=== PATIENT | male | born 1955 | race Caucasian/White ===

== ENCOUNTER 2022-11-01 03:50 | Day surgery (SDC) | payer MEDICARE, SELFPAY ==
[2022-10-28 14:00] VITALS: BMI 29.0
[2022-11-01 06:58] VITALS: BP 120/84; PULSE 74; RESP 18; TEMP 36.4; O2SAT 100; BMI 28.8
[2022-11-01] MEDS: LACTATED RINGERS 1,000 ML 150 ML IV CONT (07:15)
--- NOTE | 2022-11-01 07:47 | PM.HPGS ---
History of Present Illness History of Present Illness Consent: Risks, benefits, and alternatives have been discussed and questions answered. Patient agrees to proceed with procedure. Chief complaint: positive cologuard Narrative: Steve Fernandes is a 66 year old male here for first colonoscopy, had + cologuard Review of Systems Constitutional: Constitutional: Denies headache(s) and Denies weakness Eyes: Eyes: Denies blurry vision ENT: Reports Normal hearing present, Denies headache(s) and Denies neck pain Cardiovascular: Cardiovascular: Denies chest pain and Denies dyspnea Respiratory: Respiratory: Denies dyspnea Gastrointestinal: Gastrointestinal: Reports no additional gastrointestinal complaints Genitourinary: Genitourinary: Denies dysuria Musculoskeletal: Musculoskeletal: Denies neck pain Integumentary/Breasts: Skin/Breast: Denies dry skin Neurologic: Reports Normal hearing present, Denies headache(s) and Denies weakness Psychiatric: Psychiatric: Denies anxiety Endocrine: Endocrine: Denies change in body appearance Hematologic/Lymphatic: Hematologic/Lymphatic: Denies easy bleeding Allergic/Immunologic: Allergic/Immunologic: Denies urticaria PMFSH Past Medical History Medical History (Updated 11/01/22 @ 07:48 by Homer Cedeno MD) Positive colorectal cancer screening using Cologuard test Social History Social History Smoking status: Former smoker Tobacco type: cigarettes Alcohol intake: current Alcohol use details: wine occasionally Substance use type: does not use Living arrangements: with family Spiritual care concerns: Yes (No blood products) Meds Home Medications and Allergies Home Medications Medication Instructions Recorded Confirmed Type losartan 100 1 tablet PO DAILY 10/28/22 11/01/22 History mg-hydrochlorothiazide 12.5 mg tablet Allergies Allergy/AdvReac Type Severity Reaction Status Date / Time No Known Allergies Allergy Verified 11/01/22 06:57 Vital Signs Vital Signs - 24 hr 11/01/22 06:58 Temperature 97.5 F L Pulse Rate 74 Respiratory Rate 18 Blood Pressure 120/84 Pulse Oximetry 100 Oxygen Delivery Room Air Exam Const: General: comfortable and no acute distress HENMT: Face/Nose/Sinus: Normal nares present Eyes: General: appearance normal, both eyes and all related structures Neck: Neck: no JVD Resp: Auscultation: clear to auscultation bilaterally Cardio: Rate: regular rate Rhythm: regular rhythm GI: Inspection: non-distended GI Palp: Yes Soft to palpation Skin: General skin exam: normal color Neuro: General: gait normal Speech: normal speech Extrem: General: normal to inspection Psych: Mental Status: mental status grossly normal Assessment and Plan Assessment and plan (1) Positive colorectal cancer screening using Cologuard test: Code(s): R19.5 - Other fecal abnormalities Status: Acute Assessment and Plan: colonoscopy
--- NOTE | 2022-11-01 07:51 | WPDANESEPPF ---
Anes - Initial Pre Proc Eval Procedure: Operation Date: 11/01/22 08:00 Proposed Procedures p Colonoscopy - Homer Cedeno MD Date/Time: 11/01/22 07:51 Surgeon: Homer Cedeno MD Pre Op Diagnosis: positive cologuard Patient Data Age: 66 Gender: M Height: 1.73 m Weight: 85.9 kg Last Vital Signs Temp 97.5 F L 11/01/22 06:58 Pulse 74 11/01/22 06:58 Resp 18 11/01/22 06:58 BP 120/84 11/01/22 06:58 Pulse Ox 100 11/01/22 06:58 O2 Del Method Room Air 11/01/22 06:58 Allergies Allergy/AdvReac Type Severity Reaction Status Date / Time No Known Allergies Allergy Verified 11/01/22 06:57 Home Medications Medication Instructions Recorded Confirmed Type losartan 100 1 tablet PO DAILY 10/28/22 11/01/22 History mg-hydrochlorothiazide 12.5 mg tablet Patient hx anesthesia problems: none Family hx anesthesia problems: none Results Review: All pre-operative results and documents have been reviewed as part of the pre-operative evaluation. [facility] Past Medical History Medical History (Updated 11/01/22 @ 07:48 by Homer Cedeno MD) Positive colorectal cancer screening using Cologuard test Social History Social History Smoking status: Former smoker Tobacco type: cigarettes Alcohol intake: current Alcohol use details: wine occasionally Substance use type: does not use Living arrangements: with family Spiritual care concerns: Yes (No blood products) Anes - Eval Final PreProcedure Day of Procedure 11/01/22 07:51 Patient weight: overweight Heart: regular rate and rhythm Lungs: clear to auscultation Airway: Mallampati scale class II Neurological: alert and oriented Last oral intake: >/= 8 hours ASA classification: II Emergent: no Anesthetic plan: proceed Anesthesia type and monitoring: general GIVS and standard monitoring Results Review: All pre-operative results and documents have been reviewed as part of the pre-operative evaluation. Informed Consent: The patient's anesthetic plan and its attendant risks and benefits were discussed with the patient/family/POA. Questions were solicited and answers provided to the satisfaction of the patient/family/POA.
[2022-11-01 08:19] VITALS: BP 107/70; PULSE 74; RESP 20; O2SAT 99
[2022-11-01 08:29] VITALS: BP 113/63; PULSE 72; RESP 20; O2SAT 99
[2022-11-01 08:39] VITALS: BP 120/82; PULSE 74; RESP 20; O2SAT 98
== END 2022-11-01 08:43 | disposition home or self-care (01) ==
PROVIDERS: PCP Family Medicine; Visit Provider Internal Medicine Gastroenterology
PROC: 0DJD8ZZ Inspection of Lower Intestinal Tract, Via Natural or Artificial Opening Endoscopic (ICD-10-PCS; CPT 45378; principal; 2022-11-01 08:00)
DX: C18.7 Malignant neoplasm of sigmoid colon (principal); D12.3 Benign neoplasm of transverse colon; D12.4 Benign neoplasm of descending colon; K57.30 Diverticulosis of large intestine without perforation or abscess without bleeding; K64.8 Other hemorrhoids; Z87.891 Personal history of nicotine dependence
CPT/HCPCS: 45385; 88305; 88341; 88342; J2001; J2704; J7120

== ENCOUNTER 2022-11-19 09:44 | Outpatient (CLI) | payer MEDICARE, SELFPAY ==
--- NOTE | ~2022-11-19 | CT_ITS ---
EXAMINATION: CT chest abdomen pelvis w con DATE: 11/19/2022 10:15 INDICATION: Malignant neoplasm of the sigmoid colon TECHNIQUE: Transaxial computed tomographic images of the chest, abdomen, and pelvis were obtained aft er the administration of 100 cc of Omnipaque 350 intravenous contrast. The dose-length product (DLP) was 1141.78 mGy-cm. Automated exposure control and iterative reconstruction technique were employed. COMPARISON: None FINDINGS: CHEST CT: There is a 2 mm nodule of the right upper lobe. There is a 3 mm nodule of the left upper lobe. The saeed ngs are free of acute opacities. No pleural effusion or pneumothorax. No pathologically enlarged thor acic lymph nodes are identified. The heart size is normal. There is moderate thoracic spondylosis. ABDOMEN/PELVIS CT: The spleen is surgically absent. There are multiple small splenules of the left upper quadrant. The l iver, pancreas, gallbladder, and adrenal glands are normal. There is a 7.8 x 5.5 cm cyst with thin se ptation in the right kidney. There are multiple nonobstructing stones of the right kidney which measu re up to 4 mm. There is a 17 mm cyst of the left kidney. No pathologically enlarged abdominal or pelv ic lymph nodes are identified. No free intraperitoneal gas or evidence of bowel obstruction. There is moderate lumbar spondylosis. IMPRESSION: 1. Small nodules of the lungs which could reflect old granulomatous disease. 2. No evidence of metastatic disease in the abdomen or pelvis. 3. Nonobstructing right nephrolithiasis. Reviewed, dictated and finalized at location L.
[2022-11-19 09:59] LABS: Estimated Glomerular Filt Rate > 60
== END 2022-11-19 09:45 ==
LOC: GOSHIMG 09:45
PROVIDERS: PCP Family Medicine; Visit Provider Surgery
DX: C18.7 Malignant neoplasm of sigmoid colon (principal); N20.0 Calculus of kidney; R91.8 Other nonspecific abnormal finding of lung field
CPT/HCPCS: 71260; 74177; Q9967

== ENCOUNTER 2022-12-13 01:25 | Day surgery (SDC) | payer MEDICARE, SELFPAY ==
[2022-11-28 10:55] VITALS: BMI 28.5
[2022-12-13 09:04] VITALS: BP 130/100; PULSE 71; RESP 18; TEMP 36.4; O2SAT 100
[2022-12-13] MEDS: LACTATED RINGERS 1,000 ML 150 ML IV CONT (09:14)
--- NOTE | 2022-12-13 09:41 | WPDANESEPPF ---
Anes - Initial Pre Proc Eval Procedure: Operation Date: 12/13/22 10:00 Proposed Procedures p Flexible Sigmoidoscopy - Homer Cedeno MD Date/Time: 12/13/22 09:41 Surgeon: Homer Cedeno MD Pre Op Diagnosis: Malignant neoplasm of sigmoid colon Patient Data Age: 66 Gender: M Height: 1.73 m Weight: 85.8 kg Last Vital Signs Temp 97.6 F 12/13/22 09:04 Pulse 71 12/13/22 09:04 Resp 18 12/13/22 09:04 BP 130/100 H 12/13/22 09:04 Pulse Ox 100 12/13/22 09:04 O2 Del Method Room Air 12/13/22 09:04 Allergies Allergy/AdvReac Type Severity Reaction Status Date / Time No Known Allergies Allergy Verified 12/13/22 09:03 Home Medications Medication Instructions Recorded Confirmed Type losartan 100 1 tablet PO DAILY 10/28/22 12/13/22 History mg-hydrochlorothiazide 12.5 mg tablet Patient hx anesthesia problems: none Family hx anesthesia problems: none Results Review: All pre-operative results and documents have been reviewed as part of the pre-operative evaluation. [facility] Past Medical History Medical History Cancer of sigmoid colon Hypertension Kidney stones Positive colorectal cancer screening using Cologuard test Surgical History Surgical History History of appendectomy History of splenectomy Social History Social History Smoking status: Former smoker Tobacco type: cigarettes Alcohol intake: current Alcohol use details: occasional Substance use type: does not use Living arrangements: with family Occupation/Education: retired Spiritual care concerns: No Anes - Eval Final PreProcedure Day of Procedure 12/13/22 09:41 Patient weight: normal Heart: regular rate and rhythm Lungs: clear to auscultation Airway: Mallampati scale class II Neurological: alert and oriented Last oral intake: >/= 8 hours ASA classification: III Emergent: no Anesthetic plan: proceed Anesthesia type and monitoring: general GIVS and standard monitoring Results Review: All pre-operative results and documents have been reviewed as part of the pre-operative evaluation. Informed Consent: The patient's anesthetic plan and its attendant risks and benefits were discussed with the patient/family/POA. Questions were solicited and answers provided to the satisfaction of the patient/family/POA.
--- NOTE | 2022-12-13 09:44 | PM.HPGS ---
History of Present Illness History of Present Illness Consent: Risks, benefits, and alternatives have been discussed and questions answered. Patient agrees to proceed with procedure. Chief complaint: Malignant neoplasm of sigmoid colon Narrative: Steve Fernandes is a 66 year old male who had colonoscopy 10/2022 after positive cologuard, found sigmoid polyp removed with hot snare but pathology c/w adenocarcinoma, Invasive tumor is less than 1 mm from the cauterized margin. Here for sigmoidoscopy to reassess site and inject tattoo if possible, he already is scheduled to have surgery in few weeks. Review of Systems Constitutional: Constitutional: Denies headache(s) and Denies weakness Eyes: Eyes: Denies blurry vision ENT: Reports Normal hearing present, Denies headache(s) and Denies neck pain Cardiovascular: Cardiovascular: Denies chest pain and Denies dyspnea Respiratory: Respiratory: Denies dyspnea Gastrointestinal: Gastrointestinal: Reports no additional gastrointestinal complaints Genitourinary: Genitourinary: Denies dysuria Musculoskeletal: Musculoskeletal: Denies neck pain Integumentary/Breasts: Skin/Breast: Denies dry skin Neurologic: Reports Normal hearing present, Denies headache(s) and Denies weakness Psychiatric: Psychiatric: Denies anxiety Endocrine: Endocrine: Denies change in body appearance Hematologic/Lymphatic: Hematologic/Lymphatic: Denies easy bleeding Allergic/Immunologic: Allergic/Immunologic: Denies urticaria PMFSH Past Medical History Medical History Cancer of sigmoid colon Hypertension Kidney stones Positive colorectal cancer screening using Cologuard test Surgical History Surgical History History of appendectomy History of splenectomy Social History Social History Smoking status: Former smoker Tobacco type: cigarettes Alcohol intake: current Alcohol use details: occasional Substance use type: does not use Living arrangements: with family Occupation/Education: retired Spiritual care concerns: No Meds Home Medications and Allergies Home Medications Medication Instructions Recorded Confirmed Type losartan 100 1 tablet PO DAILY 10/28/22 12/13/22 History mg-hydrochlorothiazide 12.5 mg tablet Allergies Allergy/AdvReac Type Severity Reaction Status Date / Time No Known Allergies Allergy Verified 12/13/22 09:03 Vital Signs Vital Signs - 24 hr 12/13/22 09:04 Temperature 97.6 F Pulse Rate 71 Respiratory Rate 18 Blood Pressure 130/100 H Pulse Oximetry 100 Oxygen Delivery Room Air Exam Const: General: comfortable and no acute distress HENMT: Face/Nose/Sinus: Normal nares present Eyes: General: appearance normal, both eyes and all related structures Neck: Neck: no JVD Resp: Auscultation: clear to auscultation bilaterally Cardio: Rate: regular rate Rhythm: regular rhythm GI: Inspection: non-distended GI Palp: Yes Soft to palpation Skin: General skin exam: normal color Neuro: General: gait normal Speech: normal speech Extrem: General: normal to inspection Psych: Mental Status: mental status grossly normal Assessment and Plan Assessment and plan (1) Cancer of sigmoid colon: Code(s): C18.7 - Malignant neoplasm of sigmoid colon Status: Acute Assessment and Plan: sigmoidoscopy to reassess site
[2022-12-13 09:58] VITALS: BP 108/71; PULSE 74; RESP 23; O2SAT 100
[2022-12-13 10:08] VITALS: BP 123/84; PULSE 72; RESP 26; O2SAT 98
[2022-12-13 10:18] VITALS: BP 128/86; PULSE 69; RESP 19; O2SAT 99
== END 2022-12-13 10:21 | disposition home or self-care (01) ==
PROVIDERS: PCP Family Medicine; Visit Provider Internal Medicine Gastroenterology
PROC: 0DJD8ZZ Inspection of Lower Intestinal Tract, Via Natural or Artificial Opening Endoscopic (ICD-10-PCS; CPT 45330; principal; 2022-12-13 10:00)
DX: C18.7 Malignant neoplasm of sigmoid colon (principal); K57.30 Diverticulosis of large intestine without perforation or abscess without bleeding; K64.8 Other hemorrhoids; I10 Essential (primary) hypertension; Z87.891 Personal history of nicotine dependence
CPT/HCPCS: 45331; 45335; 88305; J2704; J7120

== ENCOUNTER 2023-01-27 13:50 | Outpatient (CLI) | payer MEDICARE, SELFPAY ==
--- NOTE | ~2023-01-27 | PE_ITS ---
EXAMINATION: PET_PETPSMAST_PT DATE: 01/27/2023 16:15 INDICATION: Prostate cancer TECHNIQUE: 8.2 mCi of pipflufolastat F-18 (18-F-DCFPyL) was administered i.v. Low dose computed zeinab graphy (CT) images were acquired from the base of the brain to the base of the brain to the proximal thighs for attenuation correction and anatomic localization. Positron emission tomography (PET) image s were acquired in the same distribution beginning 91 minutes after injection. Images including fused PET/CT images were reconstructed in axial, coronal, and sagittal planes. Automated exposure control technique was employed. The dose-length product was 502.85mGy-cm. COMPARISON: None FINDINGS: Head/neck: Typical pattern of symmetric physiologic increased activity in the lacrimal, parotid and submandibula r glands as well as along the mucosa of the nasal and oral cavities, the marita-, naso- and hypopharynx, the glottis and esophagus. There is also a typical pattern of symmetric tiny foci of mild likely phy siologic neural ganglia uptake at a few bilateral cervical neural foramina. No pathologically enlarge d cervical lymphadenopathy or suspicious foci of increased uptake in the visualized head or neck. Chest: Mild respiratory motion and the lungs. No suspicious pulmonary nodules, pneumonia, pulmonary edema or pleural effusion. Heart size is normal. No pericardial effusion. Thoracic aorta is normal in caliber . No pathologically enlarged or PSMA avid thoracic lymphadenopathy. Abdomen/pelvis/proximal thighs: Physiologic renal accumulation and excretion of activity in the kidneys, bladder and along portions o f ureters. Photopenic defects associated with bilateral renal cysts the largest on the right measurin g 7.3 cm with minimal rim calcification. There are at least 6 small nonobstructing renal stones clust ered in the lower pole calyces of the right kidney, the largest measuring up to 5 mm in maximal diame ter. Prostatomegaly measuring 5.5 x 4.5 cm with cluster of small foci of increased PSMA uptake with m aximal SUV of 8.1 at and slightly to the left of midline along the posterior inferior prostate which without discrete correlate on CT but which is suspicious for primary prostate cancer. There is a 1.3 cm right obturator lymph node with more prominent increased PSMA uptake with maximal SUV of 36 consis tent with metastatic disease. There is a second smaller focus of mild uptake with maximal SUV of 4.1 appears be associated with a 6 mm nodule potentially metastatic lymph node situated the fat plane bet ween the right obturator externus and pectineus muscles. Normal degree and slightly heterogenous pillo rosi of increased uptake throughout the liver without radiologic correlate or dominant PSMA avid lesio n. Spleen is partially absent with small amount of likely physiologic uptake such with a residual 1.9 x 1.2 cm splenule underlying the lateral left hemidiaphragm. The gallbladder, pancreas and bilateral adrenal glands are normal. Moderate uptake scattered throughout the bowels with typical duodenal and proximal jejunal predominance and without radiologic correlate, also likely physiologic. Mild divert iculosis along the descending colon without adjacent comparison to suggest diverticulitis. No other a bnormal foci of increased uptake or pathologically enlarged lymphadenopathy in the abdomen, pelvis or proximal thighs. Musculoskeletal: Severe spondylosis at the lower cervical spine and lumbosacral junction. Lucent hemangiomas at the T8 and L1 vertebral bodies. No suspicious lytic, blastic or PSMA avid bone lesions to suggest osseous m etastatic disease. IMPRESSION: 1. Cluster of a few small foci of increased PSMA uptake at the posterior inferior prostate is suspici ous for primary prostate cancer. 2. Enlarged and prominently PSMA avid right obturator lymph node consistent with metastatic disease. There is a second mildly PSMA avid 6 mm lymph
== END 2023-01-27 13:51 | disposition home or self-care (01) ==
PROVIDERS: PCP Family Medicine; Visit Provider Urology
DX: C61 Malignant neoplasm of prostate (principal); R59.0 Localized enlarged lymph nodes
CPT/HCPCS: 78815; A9595

== ENCOUNTER 2023-11-24 01:01 | Day surgery (SDC) | payer MEDICARE, SELFPAY ==
[2023-11-05 09:12] VITALS: BMI 30.4
[2023-11-24 10:15] VITALS: BP 125/79; PULSE 82; RESP 16; TEMP 36; O2SAT 100; BMI 28.5
[2023-11-24] MEDS: LACTATED RINGERS 1,000 ML 150 ML IV CONT (10:35)
--- NOTE | 2023-11-24 11:03 | PM.HPGS ---
History of Present Illness History of Present Illness Consent: Risks, benefits, and alternatives have been discussed and questions answered. Patient agrees to proceed with procedure. Chief complaint: Malignant neoplasm of sigmoid colon Narrative: Steve Fernandes is a 67 year old male who had colonoscopy 10/2022 after positive cologuard, found sigmoid polyp removed with hot snare but pathology c/w adenocarcinoma, Invasive tumor is less than 1 mm from the cauterized margin. Then repeat sigmoidoscopy with negative biopsies of polypectomy site. Here to reassess. Review of Systems Review of Systems: All systems reviewed & are unremarkable except as noted in HPI and below PMFSH Past Medical History Medical History Cancer of sigmoid colon Hypertension Kidney stones Positive colorectal cancer screening using Cologuard test Surgical History Surgical History History of appendectomy History of splenectomy Social History Social History Smoking status: Former smoker Tobacco type: cigarettes Alcohol intake: current Drinks per week: 1 Alcohol use details: occasional Substance use type: does not use Living arrangements: with family Occupation/Education: retired Spiritual care concerns: No Meds Home Medications and Allergies Home Medications Medication Instructions Recorded Confirmed Type losartan 100 1 tablet PO DAILY 10/28/22 11/24/23 History mg-hydrochlorothiazide 12.5 mg tablet Allergies Allergy/AdvReac Type Severity Reaction Status Date / Time No Known Allergies Allergy Verified 11/24/23 10:19 Vital Signs Vital Signs - 24 hr 11/24/23 10:15 Temperature 96.8 F L Pulse Rate 82 Respiratory Rate 16 Blood Pressure 125/79 Pulse Oximetry 100 Oxygen Delivery Room Air Exam Const: General: comfortable and no acute distress HENMT: Face/Nose/Sinus: Normal nares present Eyes: General: appearance normal, both eyes and all related structures Neck: Neck: no JVD Resp: Auscultation: clear to auscultation bilaterally Cardio: Rate: regular rate Rhythm: regular rhythm GI: Inspection: non-distended GI Palp: Yes Soft to palpation Skin: General skin exam: normal color Neuro: General: gait normal Speech: normal speech Extrem: General: normal to inspection Psych: Mental Status: mental status grossly normal Assessment and Plan Assessment and plan (1) Cancer of sigmoid colon: Code(s): C18.7 - Malignant neoplasm of sigmoid colon Status: Acute Assessment and Plan: colonoscopy
[2023-11-24 11:23] VITALS: BP 103/70; PULSE 84; RESP 22; O2SAT 100
[2023-11-24 11:33] VITALS: BP 101/70; PULSE 81; RESP 18; O2SAT 100
[2023-11-24 11:40] VITALS: BP 118/74; PULSE 79; RESP 18; O2SAT 100
--- NOTE | 2023-12-01 08:42 | P.PNAN_ITS ---
Anes - Initial Pre Proc Eval Procedure: Operation Date: 11/24/23 11:30 Proposed Procedures p Colonoscopy - Homer Cedeno MD Date/Time: 12/01/23 08:42 Surgeon: Homer Cedeno MD Pre Op Diagnosis: Malignant neoplasm of sigmoid colon Patient Data Age: 67 Gender: M Height: 1.73 m Weight: 85.1 kg Last Vital Signs Temp 96.8 F L 11/24/23 10:15 Pulse 79 11/24/23 11:40 Resp 18 11/24/23 11:40 BP 118/74 11/24/23 11:40 Pulse Ox 100 11/24/23 11:40 O2 Del Method Room Air 11/24/23 11:40 Allergies Allergy/AdvReac Type Severity Reaction Status Date / Time No Known Allergies Allergy Verified 11/24/23 10:19 Home Medications Medication Instructions Recorded Confirmed Type losartan 100 1 tablet PO DAILY 10/28/22 11/24/23 History mg-hydrochlorothiazide 12.5 mg tablet Patient hx anesthesia problems: none Family hx anesthesia problems: none Results Review: All pre-operative results and documents have been reviewed as part of the pre- operative evaluation. [facility] Past Medical History Medical History Cancer of sigmoid colon Hypertension Kidney stones Positive colorectal cancer screening using Cologuard test Surgical History Surgical History History of appendectomy History of splenectomy Social History Social History Smoking status: Former smoker Tobacco type: cigarettes Alcohol intake: current Drinks per week: 1 Alcohol use details: occasional Substance use type: does not use Living arrangements: with family Occupation/Education: retired Spiritual care concerns: No Anes - Eval Final PreProcedure Day of Procedure 12/01/23 08:42 Patient weight: normal Heart: regular rate and rhythm Lungs: clear to auscultation Airway: Mallampati scale class II Neurological: alert and oriented Last oral intake: >/= 8 hours ASA classification: III Emergent: no Anesthetic plan: proceed Anesthesia type and monitoring: general GIVS and standard monitoring Results Review: All pre-operative results and documents have been reviewed as part of the pre- operative evaluation. Informed Consent: The patient's anesthetic plan and its attendant risks and benefits were discussed with the patient/family/POA. Questions were solicited and answers provided to the satisfaction of the patient/family/POA.
== END 2023-11-24 11:40 | disposition home or self-care (01) ==
PROVIDERS: PCP Physician Assistant; Visit Provider Internal Medicine Gastroenterology
PROC: 0DJD8ZZ Inspection of Lower Intestinal Tract, Via Natural or Artificial Opening Endoscopic (ICD-10-PCS; CPT 45378; principal; 2023-11-24 11:30)
DX: Z09 Encounter for follow-up examination after completed treatment for conditions other than malignant neoplasm (principal); K57.30 Diverticulosis of large intestine without perforation or abscess without bleeding; I10 Essential (primary) hypertension; Z98.890 Other specified postprocedural states; Z87.891 Personal history of nicotine dependence; Z87.442 Personal history of urinary calculi; Z85.038 Personal history of other malignant neoplasm of large intestine
CPT/HCPCS: 45378; J2704; J7120